=== PATIENT | female | born 1955 | race Caucasian/White ===

== ENCOUNTER 2024-06-06 11:57 | Outpatient (CLI) | payer MEDICAID, MEDICARE, SELFPAY ==
--- NOTE | 2024-06-06 13:00 | MM_ITS ---
WS: [id number] SCREENING DIGITAL BREAST TOMOSYNTHESIS MAMMOGRAM WITH CAD HISTORY: SCREENING COMPARISON: None available. Bilateral CC and MLO with tomosynthesis and synthetic mammography submitted. Computer aided detection analyzed. Breast composition: There are scattered areas of fibroglandular density. Focal asymmetry upper outer LEFT breast at middle depth. No suspicious calcifications. No distortion. MM/MM scr BI tomosynthesis [id number] IMPRESSION: BI-RADS: 0 - Incomplete: Need additional imaging evaluation. FOLLOW UP: Need Additional Imaging LEFT breast: Spot compression views (CC and MLO). True ML. Ultrasound to follow if abnormality persists.
== END 2024-06-06 11:58 | disposition home or self-care (01) ==
LOC: MOBLMAM 12:05
PROVIDERS: PCP Family Medicine; Visit Provider Family Medicine
DX: Z12.31 Encounter for screening mammogram for malignant neoplasm of breast (principal)
CPT/HCPCS: 77063; 77067

== ENCOUNTER 2024-08-28 10:31 | Outpatient (CLI) | payer MEDICARE, MEDICAID, SELFPAY ==
--- NOTE | 2024-08-28 10:33 | MM_ITS ---
WS: [id number] ADDITIONAL VIEWS LEFT MAMMOGRAM with tomosynthesis. LEFT BREAST ULTRASOUND HISTORY: ABNORMAL MAMMOGRAM COMPARISON: 06/06/2024 LEFT MAMMOGRAM: Spot compression views and true ML with tomosynthesis and sympathetic mammography. Lobulated mass of increased density in the lateral LEFT breast measures 7 x 7 x 11 mm. Margins are sl ightly lobulated. There is a benign lymph node more posterior towards the axillary tail. LEFT BREAST ULTRASOUND 2-D and color Doppler imaging submitted. At 2:00, 5 cm from the nipple is a hypoechoic mass measuring 9 x 5 x 6 mm. No additional mass identif ied. MM/MM diag LT tomosynthesis [id number] IMPRESSION: BI-RADS: 3 - Probably Benign. FOLLOW UP: 6 Month Follow-up Patient refused additional ultrasound imaging. The size and shape of the mass i dentified by ultrasound and LEFT breast is not definitely concordant with the m ammographic abnormality. Patient refused additional ultrasound imaging. Recomme nd 6-month LEFT mammogram and possible ultrasound follow-up.
== END 2024-08-28 10:32 | disposition home or self-care (01) ==
LOC: RAD 10:32
PROVIDERS: PCP Family Medicine; Visit Provider Family Medicine
DX: R92.2 Inconclusive mammogram (principal); N63.21 Unspecified lump in the left breast, upper outer quadrant
CPT/HCPCS: 76642; 77061; G0279

== ENCOUNTER 2025-05-21 10:54 | Outpatient (CLI) | payer MEDICARE, MEDICAID, SELFPAY ==
--- NOTE | 2025-05-21 | MM_ITS ---
WS: [id number] DIAGNOSTIC LEFT DIGITAL BREAST TOMOSYNTHESIS WITH CAD HISTORY: 6 MO FU LT BREAST COMPARISON: 08/28/2024, 08/06/2023 Left craniocaudal, mediolateral oblique and medial lateral images are submitted with tomosynthesis and SM. Computer aided detection performed. Breast composition: There are scattered areas of fibroglandular density. Reidentified is a solid mass which is slightly lobulated in the lateral LEFT breast at a middle depth measuring 8 x 9 x 9 mm. No significant increase in size since the prior examination. No distortion. There is a benign lymph node more posterior in the lateral LEFT breast. Patient is elected not to proceed with ultrasound. MM/MM diag LT tomosynthesis [id number] IMPRESSION: BI-RADS: 3 - Probably Benign. FOLLOW UP: 6 Month Follow-up Patient to return in 6 months for bilateral mammogram. Additional imaging LEFT breast mass will be performed at that time.
== END 2025-05-21 10:55 | disposition home or self-care (01) ==
LOC: RAD 10:54
PROVIDERS: PCP Family Medicine; Visit Provider Family Medicine
DX: R92.8 Other abnormal and inconclusive findings on diagnostic imaging of breast (principal); R92.323 Mammographic fibroglandular density, bilateral breasts; D24.2 Benign neoplasm of left breast; N63.20 Unspecified lump in the left breast, unspecified quadrant
CPT/HCPCS: 77061; G0279